=== PATIENT | female | born 1970 | race Caucasian/White ===

== ENCOUNTER 2022-04-22 18:31 | Emergency (ER) | payer BC ==
[2022-04-22 19:47] LABS: CHLORIDE,CL 102 mmol/L (98-107); SODIUM,NA 137 mmol/L (136-145)
[2022-04-22 19:51] LABS: ANION GAP 9.7 mmol/L (5-15); ESTIMATED GFR 60 mL/min (>=60)
[2022-04-22] MEDS: Meclizine 25 MG Tab PO ONE (20:18)
== END 2022-04-22 21:06 | disposition home or self-care (01) ==
LOC: VM.ED 18:31
DX: R42 Dizziness and giddiness (principal); I25.10 Atherosclerotic heart disease of native coronary artery without angina pectoris; Z88.8 Allergy status to other drugs, medicaments and biological substances; Z91.041 Radiographic dye allergy status
CPT/HCPCS: 36415; 70450; 71046; 80053; 81003; 82550; 83615; 84484; 85025; 86140; 93005; 93010; 99284; A9270